=== PATIENT | male | born 1960 | race Caucasian/White ===

== ENCOUNTER 2021-01-25 19:17 | Emergency (ER) | payer BC, OTHER ==
[~2021-01-25] VITALS: Ht 197 cm; Wt 145.0 kg
--- NOTE | 2021-01-25 20:35 | ED General ---
General Chief Complaint: Cough/Cold/Flu Symptoms Stated Complaint: COVID+;FEVER;CONGESTION;GEN BODY ACHES Nursing Triage Note: TO ED VIA POV AND AMBULATORY TO ROOM 9 NEGATIVE PRESSURE ROOM PT IS COVID +. PT STATES HE TESTED POSITIVE TODAY FOR COVID AT [facility]. HE STATES THERE WAS AN OUTBREAK AT HIS [facility] AND A FRIEND OF HIS WAS SEEN BY DR ROBERTS AND THE PT HIMSELF SPOKE WITH DR ROBERTS AND WAS TOLD TO COME HERE TO GET AN ORDER FOR BAM INFUSION. PT STATES HE IS ACHY, HAS HAD FEVER WITH HIGHEST 100.1 LAST NIGHT. LAST TOOK MOTRIN AT 1300 TODAY. DENIES INCREASED SOA, N/V. STATES HE HAS LOST TASTE/SMELL. Nursing Sepsis Screen: No Definite Risk Source of Information: Patient Exam Limitations: No Limitations History of Present Illness Date Seen by Provider: Jan 25, 2021 Time Seen by Provider: 20:31 Initial Comments Covid positive fever congestion body aches. States that he is only here to get a prescription for Bamlanivimab infusion next week. Positive for Covid today at [facility]. Symptoms began 3 days ago. Timing/Duration: 1-2 Days Severity: Moderate Associated Systoms: Cough Allergies and Home Medications Allergies Coded Allergies: No Known Drug Allergies (Unverified , 01/25/21) Patient Home Medication List Home Medication List Reviewed: Yes Review of Systems Review of Systems Constitutional: see HPI EENTM: see HPI Respiratory: see HPI Cardiovascular: no symptoms reported Genitourinary: no symptoms reported Musculoskeletal: no symptoms reported Skin: no symptoms reported Psychiatric/Neurological: No Symptoms Reported Hematologic/Lymphatic: No Symptoms Reported Immunological/Allergic: no symptoms reported Past Hleqhfm-Vjfjgr-[id number] Hx Patient Social History Alcohol Use: Denies Use Smoking Status: Never a Smoker Recent Infectious Disease Expo: Yes Past Medical History Surgeries: Yes (HERNIA) Appendectomy, Gallbladder, Orthopedic Respiratory: No Cardiac: Yes Hypertension Neurological: No Genitourinary: Yes Renal Failure Gastrointestinal: No Musculoskeletal: No Endocrine: No HEENT: No Cancer: No Psychosocial: No Blood Disorders: No Physical Exam Vital Signs Vital Signs - First Documented 01/25/21 20:46 Pulse Ox 97 Capillary Refill : Less Than 3 Seconds Height, Weight, BMI Height: '" Weight: lbs. oz. kg; 37.00 BMI Method: General Appearance: No Apparent Distress, WD/WN, Other (sats 96% no dyspnea or tachypnea) Eyes: Bilateral Eye Normal Inspection, Bilateral Eye PERRL Neck: Full Range of Motion, Normal Inspection Respiratory: No Accessory Muscle Use, No Respiratory Distress Cardiovascular: Regular Rate, Rhythm, Normal Peripheral Pulses Gastrointestinal: Normal Bowel Sounds, Non Tender, Soft Extremity: Normal Capillary Refill, Normal Inspection Neurologic/Psychiatric: Alert, Oriented x3 Skin: Normal Color, Warm/Dry Progress/Results/Core Measures Suspected Sepsis Recent Fever Within 48 Hours: Yes Infection Criteria Present: Documented Infection New/Unexplained Altered Menta: No Sepsis Screen: No Definite Risk SIRS Temperature: Pulse: 89 Respiratory Rate: 18 Blood Pressure 147 /106 Mean: 120 Results/Orders My Orders Orders - MATESU NAGEL APRN Ed Iv/Invasive Line Start (01/25/21 19:47) Covid-19 External Lab Results (01/25/21 20:10) Isolation Central Supply Req (01/25/21 20:10) Vital Signs/I&O 01/25/21 01/25/21 01/25/21 19:37 19:37 20:46 Temp 37.0 37.0 Pulse 89 79 Resp 18 18 B/P (MAP) 147/106 (120) 146/105 (120) Pulse Ox 97 O2 Delivery Room Air Room Air Room Air Capillary Refill : Less Than 3 Seconds Blood Pressure Mean: 120 Departure Communication (Admissions) I discussed with him monoclonal antibody infusion under emergency use authorization and experimental nature. He agrees and would like to proceed with getting it. Impression Primary Impression: COVID-19 Disposition: 01 HOME, SELF-CARE Condition: Stable Departure-Patient Inst. Decision time for Depature: 20:33 Referrals: NO,LOCAL PHYSICIAN (PCP) Primary Care Physician Patient Instructions: Recovery After Coronavirus Disease 2019 (COVID-19) Add. Discharge Instructions: 1. The hospital will call you on Wednesday to set up a time for Bamlanivimab infusion. All discharge instructions reviewed with patient and/or family. Voiced understanding. MATEUS NAGEL APRN Jan 25, 2021 20:35
[2021-01-25 20:46] VITALS: BP 146/105
== END 2021-01-25 20:46 | disposition home or self-care (01) ==
LOC: ER 19:21
DX: U07.1 COVID-19 (principal); I10 Essential (primary) hypertension
CPT/HCPCS: 99282

== ENCOUNTER → 2021-01-27 | Outpatient (CLI) | payer BC ==
[~2021-01-27] VITALS: Ht 198 cm; Wt 145.5 kg
[~2021-01-27] MED LIST: BAMLANIVIMAB (NON FORM) 700 MG in NS (IVPB) 100 ML IV ONE; EPINEPHrine INJECTION 1 MG/ML AMP IM PRN; diphenhydrAMINE 50 MG/ML INJ (BENADRYL) IV PRN
[2021-01-27 13:06] VITALS: BP 151/96
[2021-01-27 14:50] VITALS: BP 128/95
== END ==
LOC: INFUSION 13:10
PROVIDERS: ATTEND Nurse Practitioner Family
DX: Z23 Encounter for immunization (principal); U07.1 COVID-19